=== PATIENT | female | born 1985 | race Hispanic/Latino ===

== ENCOUNTER 2019-03-19 18:15 | Emergency (ER) | payer MEDICAID, OTHER | END 2019-03-19 19:42 | disposition home or self-care (01) | LOC: EDH 18:15 | DX: S60.454A Superficial foreign body of right ring finger, initial encounter (principal); X58.XXXA Exposure to other specified factors, initial encounter; Y93.89 Activity, other specified; Y92.89 Other specified places as the place of occurrence of the external cause; Y99.8 Other external cause status ==